=== PATIENT | male | born 1980 ===

== ENCOUNTER 2017-10-06 19:47 | Emergency (ER) | payer OTHER ==
[2017-10-06 20:16] VITALS: BP 114/67
--- NOTE | 2017-10-06 20:51 | UC ---
Throat Pain/Nasal [place] HPI - History of Current Complaint Chief Complaint: UCRespiratory Stated Complaint: SINUS COMPLAINT Time Seen by Provider: 10/06/17 20:29 Pain Intensity: 3 - Allergies/Home Medications Allergies/Adverse Reactions: Allergies Allergy/AdvReac Type Severity Reaction Status Date / Time No Known Allergies Allergy Verified 10/06/17 20:12 Home Medications: Home Medications LoraTADine TAB(NF) [Claritin 10 MG TAB(NF)] 10 mg PO DAILY 10/06/17 [History Confirmed 10/06/17] PMH/Surg Hx/FS Hx/Imm Hx - Surgical History Surgical History: None - Social History Alcohol Use: Occasionally Substance Use Type: None Smoking Status (MU): Never Smoked Tobacco Physical Exam Vital Signs: Initial Vital Signs Temp 97.7 F 10/06/17 20:09 Pulse 77 10/06/17 20:09 Resp 16 10/06/17 20:09 BP 114/67 10/06/17 20:09 Pulse Ox 97 10/06/17 20:09 Discharge - Discharge Plan Referrals: No Primary Care Phys,NOPCP [Primary Care Provider] -
[2017-10-06] MEDS ORDERED: Amoxicillin PO (*) 500 MG CAP PO ONE (21:00)
== END 2017-10-06 21:10 | disposition home or self-care (01) ==
LOC: UCEAST 19:47
DX: J34.89 Other specified disorders of nose and nasal sinuses (principal)
CPT/HCPCS: 99202; A9270-GY; G0463

== ENCOUNTER 2017-12-25 04:03 | Emergency (ER) | payer OTHER ==
[2017-12-25] MEDS ORDERED: Ketorolac INJ* 30 MG/ML 1 ML VIAL IV PUSH ONE (04:24)
[2017-12-25] MEDS ORDERED: NS 0.9% 1000 ML* 1,000 ML IV ONE (04:24)
[2017-12-25] MEDS ORDERED: LORazepam INJ* 2 MG/ML 1 ML VIAL IV PUSH ONE (04:25)
--- NOTE | 2017-12-25 04:25 | ED ---
Back Pain - HPI Summary HPI Summary: This is Russ moura Lugo documenting for attending physician Carissa Ruano MD. This patient is a 37 year old M presenting to [facility] accompanied by his family with a chief complaint of right side back pain for the last two days. The patient rates the pain 5/10 in severity. Symptoms aggravated by movement. Patient reports trouble sleeping. Patient denies urinary sx, ABD pain, nausea, and testicular pain. Pt states he did not injure it but he could have pulled a muscle at his job. - History of Current Complaint Chief Complaint: EDBackInjuryPain Stated Complaint: BACK PAIN Time Seen by Provider: 12/25/17 04:10 Hx Obtained From: Patient Onset/Duration: Lasting Days, Still Present Onset/Duration: Still Present Timing: Constant Back Pain Location: Is Discrete @ - right side Severity Initially: Moderate Severity Currently: Moderate Pain Intensity: 5 Pain Scale Used: 0-10 Numeric Associated Signs And Symptoms: Positive: Negative - urinary sx and ABD pain, Other - trouble sleeping due to pain - Allergies/Home Medications Allergies/Adverse Reactions: Allergies Allergy/AdvReac Type Severity Reaction Status Date / Time No Known Allergies Allergy Verified 12/25/17 04:07 PMH/Surg Hx/FS Hx/Imm Hx Infectious Disease History: No Infectious Disease History: Denies: Traveled Outside the [place] in Last 30 Days - Family History Known Family History: Positive: Hypertension - Social History Alcohol Use: Occasionally Substance Use Type: Reports: None Smoking Status (MU): Never Smoked Tobacco Review of Systems Positive: Other - trouble sleeping due to pain Negative: Abdominal Pain, Nausea Genitourinary: Negative - testicle pain Positive: no symptoms reported Positive: Other - back pain All Other Systems Reviewed And Are Negative: Yes Physical Exam - Summary Physical Exam Summary: VITAL SIGNS: Reviewed. GENERAL: Patient is a well-developed and nourished male who is lying comfortable in the stretcher. Patient is not in any acute respiratory distress. HEAD AND FACE: No signs of trauma. No ecchymosis, hematomas or skull depressions. No sinus tenderness. EYES: PERRLA, EOMI x 2, No injected conjunctiva, no nystagmus. EARS: Hearing grossly intact. Ear canals and tympanic membranes are within normal limits. MOUTH: Oropharynx within normal limits. NECK: Supple, trachea is midline, no adenopathy, no JVD, no carotid bruit, no c- spine tenderness, neck with full ROM. CHEST: Symmetric, no tenderness at palpation LUNGS: Clear to auscultation bilaterally. No wheezing or crackles. CVS: Regular rate and rhythm, S1 and S2 present, no murmurs or gallops appreciated. ABDOMEN: Soft, TTP in the right lower ABD. No signs of distention. No rebound no guarding, and no masses palpated. Bowel sounds are normal. Back: TTP on the right mid lower back EXTREMITIES: FROM in all major joints, no edema, no cyanosis or clubbing. NEURO: Alert and oriented x 3. No acute neurological deficits. Speech is normal and follows commands. SKIN: Dry and warm Triage Information Reviewed: Yes Vital Signs On Initial Exam: Initial Vitals Temp Pulse Resp BP Pulse Ox 97.7 F 80 18 134/85 98 12/25/17 04:05 12/25/17 04:05 12/25/17 04:05 12/25/17 04:05 12/25/17 04:05 Vital Signs Reviewed: Yes Diagnostics - Vital Signs Vital Signs Temp Pulse Resp BP Pulse Ox 12/25/17 04:05 97.7 F 80 18 134/85 98 - Laboratory Result Diagrams: 12/25/17 04:30 12/25/17 04:30 Lab Statement: Any lab studies that have been ordered have been reviewed, and results considered in the medical decision making process. Back Pain Course/Dx - Course Assessment/Plan: This patient is a 37 year old M presenting to [facility] accompanied by his family with a chief complaint of right side back pain for the last two days. The patient rates the pain 5/10 in severity. Symptoms aggravated by movement. Patient reports trouble sleeping. Patient denies urinary sx, ABD pain, nausea, and testicular pain. Pt states he did not injure it but he could have pulled a muscle at his job. An EKG reveals. CT ABD/ Pelvis reveals, per radiologist, no acute findings. ED physician has reviewed this radiology report. Dx back pain. Test results with no significant abnormalities. In the ED course the patient was given reglan, morphine, IV fluids, and toradol. Patient will be discharged with prescription for flexeril and follow up from PCP referral center. The patient is agreeable with this plan. - Diagnoses Provider Diagnoses: Back pain Discharge - Sign-Out/Discharge Documenting (check all that apply): Patient Departure - Discharge Plan Condition: Stable Disposition: HOME Prescriptions: Cyclobenzaprine TAB* [Flexeril 10 MG TAB*] 10 mg PO TID PRN #20 tab PRN Reason: Pain Ibuprofen TAB* [Motrin TAB* 800 MG] 800 mg PO Q6H PRN #30 tab PRN Reason: Pain Patient Education Materials: Acute Low Back Pain (ED) Referrals: [facility] [place] [facility] REFERRAL [Outside] Additional Instructions: RETURN TO EMERGENCY DEPARTMENT FOR ANY NEW OR WORSENING SYMPTOMS Attestation Statement Scribe Attestation: This is Russ moura documenting for attending physician Carissa Ruano MD. User Type: Provider with [employer] Provider Attestation: The documentation recorded by the dhavalibe accurately reflects the service I personally performed and the decisions made by me.
[2017-12-25 04:43] LABS: ABS Basophils 0.1 10^3/ul (0-0.2); ABS Eosinophils 0.1 10^3/ul (0-0.6); ABS Lymphocytes 3.4 10^3/ul (1.0-4.8); ABS Monocytes 0.7 10^3/ul (0-0.8); ABS Neutrophils 3.3 10^3/ul (1.5-7.7); ABS Nucleated RBC 0 10^3/ul; Eosinophil % 1.9 % (0-6); Hematocrit 43 % (42-52); Lymphocyte % 45.4 % (25-47); Mean Corpuscular HGB Conc 35 g/dl (31-36); Mean Corpuscular Hemoglobin 29 pg (27-31); Mean Corpuscular Volume 81 fL (80-94); Mean Platelet Volume 7.2 um3 (7.4-10.4); Nucleated Red Blood Cells % 0.2; Platelet Count 214 10^3/ul (150-450); Red Blood Count 5.26 10^6/ul (4.00-5.40); Red Cell Distribution Width 14 % (10.5-15); White Blood Count 7.6 10^3/ul (3.5-10.8)
[2017-12-25 04:47] LABS: INR 0.84 (0.77-1.02)
[2017-12-25 04:58] LABS: EGFR Non-African American 91.3 (>60)
[2017-12-25] MEDS ORDERED: Morphine INJ* 2 MG/ML 1 ML SYRINGE (TWO MG - NEW SYRINGE VERSION) IV ONE (05:14)
[2017-12-25] MEDS ORDERED: Metoclopramide IV* 5 MG/ML 2 ML VIAL IV SLOW PU ONE (05:15)
[2017-12-25 06:04] LABS: Urine Appearance Clear; Urine Blood Negative (Negative); Urine Color Straw; Urine Ketones Negative (Negative); Urine Protein Negative (Negative); Urine Specific Gravity 1.008 (1.010-1.030); Urine Urobilinogen Negative (Negative)
--- NOTE | 2017-12-25 06:15 | RAD ---
EXAM: CT Abdomen and Pelvis Without Intravenous Contrast CLINICAL HISTORY: 37 years old, male; Pain; Other: Back pain TECHNIQUE: Axial computed tomography images of the abdomen and pelvis without intravenous contrast. Coronal and sagittal reformatted images were created and reviewed. COMPARISON: No relevant prior studies available. FINDINGS: Lung bases: Unremarkable. No mass. No consolidation. ABDOMEN: Liver: Unremarkable. Gallbladder and bile ducts: Unremarkable. No calcified stones. No ductal dilation. Pancreas: Unremarkable. No ductal dilation. Spleen: Unremarkable. No splenomegaly. Adrenals: Unremarkable. No mass. Kidneys and ureters: No hydronephrosis or nephrolithiasis. The kidneys are of normal size and appearance. Stomach and bowel: No evidence of bowel obstruction. Moderate amount of feces and air is located in the colon. No mucosal thickening. No mesenteric inflammation. No free g fluid or air. PELVIS: Appendix: No findings to suggest acute appendicitis. Bladder: Unremarkable. No stones. Reproductive: Unremarkable as visualized. ABDOMEN and PELVIS: Intraperitoneal space: Unremarkable. No free air. No significant fluid collection. Bones/joints: The appearance of the lower thoracic and lumbar spine are not remarkable. No evidence of fracture or pathologic subluxation. Soft tissues: Unremarkable. Vasculature: Unremarkable. No abdominal aortic aneurysm. Lymph nodes: Unremarkable. No enlarged lymph nodes. IMPRESSION: No acute findings. I reviewed the report and agree with the findings and Bulmaro Roque M.D.
[2017-12-25 06:33] VITALS: BP 118/77
== END 2017-12-25 06:35 | disposition home or self-care (01) ==
LOC: ED 04:03
DX: M54.9 Dorsalgia, unspecified (principal)
CPT/HCPCS: 36415; 74176; 80053; 81003; 82150; 83605; 83690; 83735; 85025; 85610; 86140; 96374; 96375; 99283; J1885; J2060; J2270; J2765